=== PATIENT | male | born 1970 | race Caucasian/White ===

== ENCOUNTER 2021-11-22 00:05 | Day surgery (SDC) | payer OTHER, SELFPAY ==
[2021-11-08 15:08] VITALS: BMI 28.1
--- NOTE | 2021-11-21 08:20 | WPDANESEPP ---
Anes - Eval Pre Procedure Procedure: Operation Date: 11/22/21 07:30 Proposed Procedures p Screening Colonoscopy - Tao Lambert MD Date/Time: 11/21/21 08:20 Surgeon: Arpan Pre Op Diagnosis: neoplasm screening Patient Data Age: 51 Gender: M Height: 1.73 m Weight: 84 kg Allergies Allergy/AdvReac Type Severity Reaction Status Date / Time No Known Allergies Allergy Verified 11/08/21 15:06 Home Medications Medication Instructions Recorded Confirmed Type mecobalamin (vitamin B12) 5,000 5,000 mcg PO DAILY 07/27/19 11/08/21 History mcg disintegrating tablet thiamine HCl (vitamin B1) 250 mg 250 mg PO DAILY 07/27/19 11/08/21 History tablet doxycycline monohydrate 50 mg 50 mg PO DAILY #30 cap 06/18/21 11/08/21 Rx capsule Patient hx anesthesia problems: none Family hx anesthesia problems: none Results Review: All pre-operative results and documents have been reviewed as part of the pre-operative evaluation. [facility] Past Medical History Medical History (Updated 11/21/21 @ 08:25 by Farnaz Greer CRNA) Alcohol abuse pt has been sober 3 years Alcoholic cirrhosis of liver without ascites CL (cirrhosis of liver) pt followed by [facility] hepatology Portal hypertensive gastropathy Pure hypercholesterolemia Tobacco abuse chewing tobacco Family History Family History Father Patient's father is in good health Sibling Patient's sister is in good health Patient's brother is in good health Mother Family history of chronic obstructive pulmonary disease Social History Social History (Updated 11/21/21 @ 08:25 by Farnaz Greer CRNA) Smoking status: Current every day smoker Tobacco type: smokeless tobacco Smokeless tobacco user: chewing tobacco Second hand tobacco smoke exposure: No Alcohol intake: former Alcohol use details: pt sober X 3 years Substance use: never Living arrangements: with family Spiritual care concerns: No Exam Day of Procedure 11/21/21 08:20
[2021-11-22 06:15] VITALS: BP 118/80; PULSE 70; RESP 18; TEMP 37; O2SAT 99; BMI 27.5
[2021-11-22] MEDS: LACTATED RINGERS 1,000 ML 150 ML IV CONT (06:34)
--- NOTE | 2021-11-22 06:51 | WPDANESEFPP ---
Anes - Eval Final PreProcedure Day of Procedure 11/22/21 06:51 Patient weight: overweight Heart: regular rate and rhythm Lungs: clear to auscultation and normal air movement Airway: Mallampati scale class II Neurological: alert and oriented Last oral intake: >/= 8 hours ASA classification: IV Emergent: no Anesthetic plan: proceed Anesthesia type and monitoring: general GIVS and standard monitoring Results Review: All pre-operative results and documents have been reviewed as part of the pre-operative evaluation. Informed Consent: The patient's anesthetic plan and its attendant risks and benefits were discussed with the patient/family/POA. Questions were solicited and answers provided to the satisfaction of the patient/family/POA.
--- NOTE | 2021-11-22 07:16 | PM.HPGS ---
History of Present Illness History of Present Illness Consent: Risks, benefits, and alternatives have been discussed and questions answered. Patient agrees to proceed with procedure. Chief complaint: neoplasm screening Narrative: Ricardo Buenrostro is a 51 year old male here for first screening colonoscopy Review of Systems Constitutional: Constitutional: Denies headache(s) and Denies weakness Eyes: Eyes: Denies blurry vision ENT: Reports Normal hearing present, Denies headache(s) and Denies neck pain Cardiovascular: Cardiovascular: Denies chest pain and Denies dyspnea Respiratory: Respiratory: Denies dyspnea Gastrointestinal: Gastrointestinal: Reports no additional gastrointestinal complaints Genitourinary: Genitourinary: Denies dysuria Musculoskeletal: Musculoskeletal: Denies neck pain Integumentary/Breasts: Skin/Breast: Denies dry skin Neurologic: Reports Normal hearing present, Denies headache(s) and Denies weakness Psychiatric: Psychiatric: Denies anxiety Endocrine: Endocrine: Denies change in body appearance Hematologic/Lymphatic: Hematologic/Lymphatic: Denies easy bleeding Allergic/Immunologic: Allergic/Immunologic: Denies urticaria [facility] Past Medical History Medical History (Updated 11/22/21 @ 07:16 by Tao Lambert MD) Alcohol abuse pt has been sober 3 years Alcoholic cirrhosis of liver without ascites CL (cirrhosis of liver) pt followed by [facility] hepatology Colon cancer screening Portal hypertensive gastropathy Pure hypercholesterolemia Tobacco abuse chewing tobacco Family History Family History Father Patient's father is in good health Sibling Patient's sister is in good health Patient's brother is in good health Mother Family history of chronic obstructive pulmonary disease Social History Social History (Updated 11/21/21 @ 08:25 by Farnaz Greer CRNA) Smoking status: Current every day smoker Tobacco type: smokeless tobacco Smokeless tobacco user: chewing tobacco Second hand tobacco smoke exposure: No Alcohol intake: former Alcohol use details: pt sober X 3 years Substance use: never Living arrangements: with family Spiritual care concerns: No Meds Home Medications and Allergies Home Medications Medication Instructions Recorded Confirmed Type mecobalamin (vitamin B12) 5,000 5,000 mcg PO DAILY 07/27/19 11/22/21 History mcg disintegrating tablet thiamine HCl (vitamin B1) 250 mg 250 mg PO DAILY 07/27/19 11/22/21 History tablet doxycycline monohydrate 50 mg 50 mg PO DAILY #30 cap 06/18/21 11/22/21 Rx capsule Allergies Allergy/AdvReac Type Severity Reaction Status Date / Time No Known Allergies Allergy Verified 11/22/21 06:23 Vital Signs Vital Signs - 24 hr 11/22/21 06:15 Temperature 98.6 F Pulse Rate 70 Respiratory Rate 18 Blood Pressure 118/80 Pulse Oximetry 99 Exam Const: General: comfortable and no acute distress HENMT: General nose exam: Normal nares present Eyes: General: appearance normal, both eyes and all related structures Neck: Neck: no JVD Resp: Auscultation: clear to auscultation bilaterally Cardio: Rate: regular rate Rhythm: regular rhythm GI: Inspection: non-distended GI Palp: Yes Soft to palpation Skin: General skin exam: normal color Neuro: General: gait normal Speech: normal speech Extrem: General: normal to inspection Psych: Mental Status: mental status grossly normal Assessment and Plan Assessment and plan (1) Colon cancer screening: Code(s): Z12.11 - Encounter for screening for malignant neoplasm of colon Status: Acute Assessment and Plan: colonoscopy
[2021-11-22 07:44] VITALS: BP 100/66; PULSE 62; RESP 16; O2SAT 100
[2021-11-22 07:54] VITALS: BP 99/67; PULSE 63; RESP 20; O2SAT 100
[2021-11-22 08:04] VITALS: BP 111/75; PULSE 57; RESP 14; O2SAT 99
== END 2021-11-22 08:16 | disposition home or self-care (01) ==
PROVIDERS: PCP Internal Medicine; Visit Provider Internal Medicine Gastroenterology
PROC: 0DJD8ZZ Inspection of Lower Intestinal Tract, Via Natural or Artificial Opening Endoscopic (ICD-10-PCS; CPT 45378; principal; 2021-11-22 07:30)
DX: Z12.11 Encounter for screening for malignant neoplasm of colon (principal); D12.2 Benign neoplasm of ascending colon; K57.30 Diverticulosis of large intestine without perforation or abscess without bleeding; K64.8 Other hemorrhoids; K70.30 Alcoholic cirrhosis of liver without ascites; F10.10 Alcohol abuse, uncomplicated; K76.6 Portal hypertension; K31.89 Other diseases of stomach and duodenum; E78.00 Pure hypercholesterolemia, unspecified; F17.290 Nicotine dependence, other tobacco product, uncomplicated
CPT/HCPCS: 45380; 88305; J2704; J7120